=== PATIENT | female | born 1995 | race Caucasian/White ===

== ENCOUNTER 2018-05-17 14:33 | Emergency (ER) | payer MEDICAID, OTHER ==
[~2018-05-17] VITALS: Ht 157.5 cm; Wt 59.0 kg
[2018-05-17 15:38] LABS: CLARITY URINE CLOUDY (CLEAR); COLOR URINE YELLOW (YELLOW); KETONES URINE 2+ (NEGATIVE); LEUKOCYTE ESTERASE URINE TRACE (NEGATIVE); NITRITE URINE NEGATIVE (NEGATIVE); OCCULT BLOOD URINE NEGATIVE (NEGATIVE); PROTEIN URINE NEGATIVE (NEGATIVE); UROBILINOGEN URINE 0.2 E.U./dL (0.2-1.0)
[2018-05-17] MEDS ORDERED: IBUPROFEN 600MG TABLET PO STA (19:36)
[2018-05-17 19:52] LABS: BASOPHILS % 0.3 % (0.0-2.0); EOSINOPHILS % 0.2 % (0.0-5.0); HEMATOCRIT. 39.8 % (36.0-48.0); HEMOGLOBIN. 13.5 g/dL (12.0-16.0); LYMPHOCYTES % 18.6 % (20.0-50.0); MEAN CORPUSCULAR HEMOGLOBIN 30.9 pg (28.0-32.0); MEAN CORPUSCULAR VOLUME 90.9 fL (81.0-99.0); MEAN PLATELET VOLUME 7.9 fl (7.4-10.4); MONOCYTES % 9.2 % (2.0-8.0); NEUTROPHILS % 71.7 % (40.0-76.0); PLATELET 173 x1000/uL (130-400); RED BLOOD CELL COUNT 4.37 mill/uL (4.2-5.4); RED CELL DISTRIBUTION WIDTH 12.9 % (11.6-14.6)
[2018-05-17 19:58] LABS: CHLORIDE 105 mEq/L (98-107)
[2018-05-17 21:02] VITALS: BP 114/66
== END 2018-05-17 21:07 | disposition home or self-care (01) ==
LOC: ER 14:33
DX: N39.0 Urinary tract infection, site not specified (principal)
CPT/HCPCS: 36415; 80053; 81003; 81025; 83690; 85025; 99284

== ENCOUNTER 2019-10-19 14:48 | Emergency (ER) | payer OTHER ==
[~2019-10-19] VITALS: Ht 157.5 cm; Wt 62.0 kg
[2019-10-19] MEDS ORDERED: ONDANSETRON HCL 4MG/2ML INJ IV STA (23:08)
[2019-10-19] MEDS ORDERED: SODIUM CHLORIDE 0.9% 1,000 ML IV ONE (23:08)
[2019-10-19] MEDS ORDERED: ONDANSETRON 4MG ODT PO ONE (23:15)
[2019-10-19 23:52] VITALS: BP 112/85
== END 2019-10-19 23:53 | disposition home or self-care (01) ==
LOC: ER 14:48
DX: R11.2 Nausea with vomiting, unspecified (principal); R19.7 Diarrhea, unspecified
CPT/HCPCS: 99283; J7030; Q0162